=== PATIENT | female | born 1990 | race Asian ===

== ENCOUNTER 2020-12-20 05:50 | Emergency (ER) | payer OTHER ==
[~2020-12-20] VITALS: Ht 162.6 cm; Wt 68.9 kg
[2020-12-20 06:00] VITALS: Ht 162.6 cm; Wt 68.9 kg
[2020-12-20 06:15] LABS: BASOPHIL % 0.4 % (0.2-1.3); PLATELET COUNT 236 x10^3mcL (179-408); RED CELL DISTRIBUTION WIDTH 13.2 % (12.3-17.7)
[2020-12-20 06:18] LABS: rbc morphology (normal/abnorm) NORMAL (NORMAL)
[2020-12-20 07:59] LABS: CALCIUM 8.7 mg/dL (8.5-10.1); CARBON DIOXIDE 29.5 mmol/L (21-32); CHLORIDE SERUM 99 mmol/L (98-107); GFR1 > 60 mL/min; GLUCOSE SERUM 118 mg/dL (74-106); POTASSIUM SERUM 4.4 mmol/L (3.5-5.1); SODIUM SERUM 138 mmol/L (136-145)
[2020-12-20 08:03] LABS: ALBUMIN 4.3 g/dL (3.4-5.0); ALKALINE PHOSPHATASE 59 U/L (46-116); ALT/SGPT 34 U/L (14-59); AST/SGOT 16 U/L (15-37); BILIRUBIN TOTAL 0.83 mg/dL (0.20-1.00); LIPASE 114 IU/L (73-393); TOTAL PROTEIN, SERUM 7.7 g/dL (6.4-8.2)
[2020-12-20] MEDS ORDERED: REGLAN10 M1 PO (08:11)
[2020-12-20] MEDS ORDERED: PROTONIX TR40 M1 PO (08:11)
[2020-12-20 08:33] VITALS: BP 112/84
== END 2020-12-20 08:33 | disposition home or self-care (01) ==
LOC: ED 05:50
DX: N20.0 Calculus of kidney (principal); I10 Essential (primary) hypertension; Z87.442 Personal history of urinary calculi
CPT/HCPCS: J1885; J2405; J7030